=== PATIENT | female | born 1955 | race Native Hawaiian/Other Pacific Islander ===

== ENCOUNTER 2022-11-14 16:13 | Emergency (ER) | payer MEDICARE ==
[~2022-11-14] VITALS: Ht 160 cm; Wt 104.3 kg
== END 2022-11-14 19:57 | disposition home or self-care (01) ==
LOC: ED 16:13
PROC: 2W39X1Z Immobilization of Left Upper Extremity using Splint (ICD-10-PCS; principal; 2022-11-14)
DX: S00.93XA Contusion of unspecified part of head, initial encounter (principal); M25.532 Pain in left wrist; W19.XXXA Unspecified fall, initial encounter
CPT/HCPCS: 96372; 99284; J1100; J1885